=== PATIENT | male | born 1995 | race Caucasian/White ===

== ENCOUNTER 2018-05-25 21:37 | Emergency (ER) | payer MEDICAID ==
[~2018-05-25] VITALS: Ht 170.2 cm; Wt 53.1 kg
[2018-05-25 21:48] VITALS: Ht 170.2 cm; Wt 53.1 kg
[2018-05-25 22:25] LABS: microscopic required? NO
[2018-05-25 22:33] LABS: BASOPHIL % 0.7 % (0-2); PLATELET COUNT 394 x10^3mcL (130-400)
[2018-05-25 22:35] LABS: RED CELL DISTRIBUTION WIDTH 16.6 % (11.5-14.5); urine erythrocyte NEGATIVE (NEGATIVE)
[2018-05-25 22:39] LABS: CALCIUM 9.2 mg/dL (8.5-10.1); CARBON DIOXIDE 29.3 mmol/L (21-32); CHLORIDE SERUM 103 mmol/L (98-107); CREATININE SERUM 0.9 mg/dL (0.7-1.3); GFR1 > 60 mL/min; GLUCOSE SERUM 105 mg/dL (74-106); POTASSIUM SERUM 4.2 mmol/L (3.5-5.1); SODIUM SERUM 137 mmol/L (136-145)
[2018-05-25 22:44] LABS: ALBUMIN 3.9 g/dL (3.4-5.0); ALKALINE PHOSPHATASE 115 U/L (46-116); ALT/SGPT 25 U/L (16-63); AST/SGOT 10 U/L (15-37); BILIRUBIN TOTAL 0.28 mg/dL (0.20-1.00); LIPASE 121 IU/L (73-393)
[2018-05-26 01:20] VITALS: BP 130/72
== END 2018-05-26 01:20 | disposition home or self-care (01) ==
LOC: ED 21:37
PROVIDERS: Emergency Medicine
DX: R10.13 Epigastric pain (principal); R63.0 Anorexia; R19.7 Diarrhea, unspecified
CPT/HCPCS: 36415; Q0092